=== PATIENT | female | born 1960 | race Caucasian/White ===

== ENCOUNTER 2020-12-13 18:42 | Inpatient (IN) | payer MEDICARE, MEDICAID ==
[~2020-12-13] VITALS: Ht 152.4 cm; Wt 86.2 kg
[2020-12-13] MEDS ORDERED: AMMONIUM LACTA385 GM T (21:44)
[2020-12-13] MEDS ORDERED: UNASYN 3 GM VIAL3 GM IM (21:48)
[2020-12-13] MEDS ORDERED: LIPITOR20 MG PO (21:49)
[2020-12-13] MEDS ORDERED: PRISTIQ50 MG PO (21:50)
[2020-12-13] MEDS ORDERED: CILOSTAZOL100 MG PO (21:50)
[2020-12-13] MEDS ORDERED: COLACE100 MG PO (21:51)
[2020-12-13] MEDS ORDERED: ELIQUIS5 M1 PO (21:54)
[2020-12-13] MEDS ORDERED: FLONASE ALLERG9.9 ML NAS (21:56)
[2020-12-13 22:00] VITALS: BP 147/77
[2020-12-13] MEDS ORDERED: FIBER TABLETS625 MG PO (22:02)
[2020-12-13] MEDS ORDERED: LATU120T PO (22:50)
[2020-12-13] MEDS ORDERED: KLONOPIN1 M1 PO (22:51)
[2020-12-13] MEDS ORDERED: SYNTHROID,LEVO75 MCG PO (22:53)
[2020-12-13] MEDS ORDERED: LISINOPRIL5 MG PO (22:54)
[2020-12-13] MEDS ORDERED: METHOCARBAMOL500 M1 PO (22:56)
[2020-12-13] MEDS ORDERED: LANTUS SOL100 UNIT/1 SC (22:58)
[2020-12-13] MEDS ORDERED: INSULIN LI100 UNIT/1 SQ (23:00)
[2020-12-13] MEDS ORDERED: ANTIFUNGAL CRE141 GM T (23:04)
[2020-12-13] MEDS ORDERED: Nystatin Cream15 GM T (23:05)
[2020-12-13] MEDS ORDERED: HEALTHYLAX17 GM PO (23:06)
[2020-12-13] MEDS ORDERED: PROTONIX TR40 M1 PO (23:07)
[2020-12-13] MEDS ORDERED: SENNA-S TABLET1 EACH PO (23:37)
[2020-12-13] MEDS ORDERED: TRAZODONE150 MG PO (23:39)
[2020-12-13 23:56] LABS: BILIRUBIN Negative (Negative); BLOOD Negative (Negative); CLARITY Clear (Clear); COLOR Yellow (Yellow); GLUCOSE 3+ (Negative); KETONE Negative (Negative); LEUKO ESTERASE Negative (Negative); NITRITE Negative (Negative); SPECIFIC GRAVITY >= 1.030 (1.001-1.030); UROBILINOGEN 0.2 E.U./dl (0.0-1.0)
[2020-12-14 00:24] LABS: WBC 0-2 wbc/hpf (0-5)
[2020-12-14 07:21] LABS: ALBUMIN 3.1 gm/dl (3.1-4.5); ALKALINE PHOSPHATASE 81 U/L (45-117); BUN 19 mg/dl (7-24); CHLORIDE 100 mmol/L (98-107); CHOLESTEROL 197 mg/dL (<200); CREATININE 0.97 mg/dL (0.55-1.02); LDL CHOLESTEROL 90 mg/dL (9-159); POTASSIUM 4.5 mmol/L (3.5-5.1); SGOT/AST 17 IU/L (3-35); SGPT/ALT 22 U/L (12-78); SODIUM 128 mmol/L (136-145); TOTAL PROTEIN 7.7 gm/dL (6.4-8.2); TRIGLYCERIDES 131 mg/dl (<150)
[2020-12-14 07:39] VITALS: BP 143/73
[2020-12-14 08:00] LABS: BASO # 0.1 10*3/uL (0.0-0.1); BASO % 0.8 % (0.0-1.0); EOS # 0.3 10*3/uL (0.0-0.4); EOS % 3.8 % (1.0-4.0); HEMATOCRIT 40.8 % (37.0-47.0); LYMPH # 1.4 10*3/uL (1.3-4.4); LYMPH % 17.4 % (27.0-41.0); MEAN CELL VOLUME 90.3 fl (81.0-99.0); MEAN CORPUSCULAR HGB 29.9 pg (27.0-31.0); MEAN CORPUSCULAR HGB CONC 33.1 g/dl (33.0-37.0); MEAN PLATELET VOLUME 9.7 fl (9.6-12.3); MONO # 0.4 10*3/uL (0.1-1.0); MONO % 5.1 % (3.0-9.0); NEUT # 5.8 10*3/uL (2.3-7.9); NEUT % 72.6 % (47.0-73.0); PLATELET COUNT AUTOMATED 263 10*3/uL (130-400); RED BLOOD COUNT 4.52 10*6/uL (4.10-5.10); RED CELL DISTRI WIDTH 13.3 % (0-14.5)
[2020-12-14 13:53] LABS: VITAMIN D, 25-HYDROXY 31.6 ng/mL (30-100)
[2020-12-14 20:00] VITALS: BP 149/65
[2020-12-15 08:01] VITALS: BP 121/66
[2020-12-15 20:00] VITALS: BP 103/66
[2020-12-16 08:00] VITALS: BP 105/55
[2020-12-16 20:00] VITALS: BP 102/54
[2020-12-17 08:00] VITALS: BP 90/57
[2020-12-17 20:23] VITALS: BP 117/54
[2020-12-18 08:00] VITALS: BP 123/68
[2020-12-18 20:00] VITALS: BP 141/69
[2020-12-19 08:00] VITALS: BP 133/75
[2020-12-19 20:00] VITALS: BP 124/68
[2020-12-20 07:03] LABS: BASO % 0.4 % (0.0-1.0); EOS # 0.4 10*3/uL (0.0-0.4); EOS % 3.9 % (1.0-4.0); HEMATOCRIT 36.3 % (37.0-47.0); LYMPH % 21.4 % (27.0-41.0); MEAN CELL VOLUME 90.8 fl (81.0-99.0); MEAN CORPUSCULAR HGB CONC 33.1 g/dl (33.0-37.0); MEAN PLATELET VOLUME 9.7 fl (9.6-12.3); MONO # 0.7 10*3/uL (0.1-1.0); MONO % 7.2 % (3.0-9.0); NEUT # 6.4 10*3/uL (2.3-7.9); NEUT % 66.8 % (47.0-73.0); PLATELET COUNT AUTOMATED 252 10*3/uL (130-400); RED CELL DISTRI WIDTH 13.4 % (0-14.5); WHITE BLOOD COUNT 9.5 10*3/uL (4.8-10.8)
[2020-12-20 07:17] LABS: ALBUMIN 2.8 gm/dl (3.1-4.5); ALKALINE PHOSPHATASE 75 U/L (45-117); BUN 14 mg/dl (7-24); CHLORIDE 105 mmol/L (98-107); CREATININE 0.96 mg/dL (0.55-1.02); POTASSIUM 4.7 mmol/L (3.5-5.1); SGOT/AST 24 IU/L (3-35); SGPT/ALT 25 U/L (12-78); SODIUM 134 mmol/L (136-145)
[2020-12-20 08:16] VITALS: BP 140/75
[2020-12-20] MEDS ORDERED: ROZEREM8 MG PO (10:29)
[2020-12-20] MEDS ORDERED: OLANZAPINE7.5 M1 PO (10:29)
[2020-12-20] MEDS ORDERED: MIRTAZAPINE15 M2 PO (10:29)
[2020-12-21] MEDS ORDERED: KLONOPIN0.5 MG PO (09:10)
[2020-12-21 09:45] VITALS: BP 129/68
== END 2020-12-21 14:15 | DRG 885 ==
LOC: 3N 18:42
PROVIDERS: Internal Medicine Infectious Disease; Registered Nurse; ADMIT Psychiatry & Neurology Psychiatry; ATTEND Psychiatry & Neurology Psychiatry
DX: F31.30 Bipolar disorder, current episode depressed, mild or moderate severity, unspecified (principal); I11.0 Hypertensive heart disease with heart failure; M86.8X7 Other osteomyelitis, ankle and foot; F70 Mild intellectual disabilities; E87.1 Hypo-osmolality and hyponatremia; D64.9 Anemia, unspecified; K21.9 Gastro-esophageal reflux disease without esophagitis; Z20.822 Contact with and (suspected) exposure to COVID-19; R62.50 Unspecified lack of expected normal physiological development in childhood; F43.10 Post-traumatic stress disorder, unspecified; E11.51 Type 2 diabetes mellitus with diabetic peripheral angiopathy without gangrene; I50.9 Heart failure, unspecified; E78.2 Mixed hyperlipidemia; K58.1 Irritable bowel syndrome with constipation; E11.42 Type 2 diabetes mellitus with diabetic polyneuropathy; E11.69 Type 2 diabetes mellitus with other specified complication; Z88.0 Allergy status to penicillin; Z88.2 Allergy status to sulfonamides; Z88.8 Allergy status to other drugs, medicaments and biological substances; Z79.4 Long term (current) use of insulin; Z79.899 Other long term (current) drug therapy